=== PATIENT | male | born 1975 | race Hispanic/Latino ===

== ENCOUNTER 2017-10-19 23:21 | Emergency (ER) | payer SELFPAY ==
[2017-10-19] MEDS ORDERED: CEFTRIAXONE SODIUM 1 GM ONE (23:46)
[2017-10-19] MEDS ORDERED: TETANUS/DIPHTHERIA TOXOID [ADULT] 0.5 ML VIAL IM ONE (23:47)
== END 2017-10-20 00:50 | disposition home or self-care (01) ==
LOC: EDH 23:21
DX: S90.812A Abrasion, left foot, initial encounter (principal); Z72.0 Tobacco use; W25.XXXA Contact with sharp glass, initial encounter; Y93.89 Activity, other specified; Y92.89 Other specified places as the place of occurrence of the external cause; Y99.8 Other external cause status
CPT/HCPCS: 73630; 90471; 90714; 96372; 99284; J0696